=== PATIENT | female | born 1975 | race Caucasian/White ===

== ENCOUNTER 2021-09-22 09:26 | Emergency (ER) | payer BC, SELFPAY ==
[2021-09-22 09:31] VITALS: BP 160/101; PULSE 71; RESP 16; TEMP 36.7; O2SAT 99
--- NOTE | 2021-09-22 10:00 | DI.RAD_ITS ---
Exam(s) XR CHEST 2V PA LATERAL EXAM: XR CHEST 2V PA LATERAL CLINICAL HISTORY: chest pain TECHNIQUE: 2D digital imaging was performed. COMPARISON: No exams were available for comparison FINDINGS: MEDIASTINUM: Normal. HEART: Normal. PULMONARY VASCULATURE: Normal. LUNGS: Clear. PLEURAL SPACE: No pleural effusion or pneumothorax. BONE:Unremarkable for age. IMPRESSION: No acute abnormality. DATA REPOSITORY: RADIATION DOSE DELIVERED:
--- NOTE | 2021-09-22 10:00 | RT.EKG_ITS ---
APPROVED REPORT Exam: Resting ECG Reason for Exam: chest pain Patient Location: E HR:62 bpm ECG Measurements Heart Rate 62 AXIS ID 166 P 57 QRSd 79 QRS 42 QT 384 T 25 QTc 389 Conclusion Sinus rhythm...normal P axis, V-rate 60- 99
--- NOTE | 2021-09-22 10:15 | W.ED.GENAD ---
Discharge Plan Disposition Patient Disposition: HOME Condition: Stable Discharge Details Clinical Impression: Back pain Primary Care Provider: None,None ED Provider: Jenise Boland Home Meds and New Rx's Prescriptions: New cyclobenzaprine 10 mg tablet 10 mg PO TID PRNQty: 10 0RF oxycodone 5 mg capsule 5 mg PO Q6H PRNQty: 5 0RF Continued cetirizine [Zyrtec] 10 mg Tablet 10 mg PO DAILY propranolol 10 mg Tablet 10 mg PO DAILY levothyroxine 200 mcg Tablet 200 mcg PO DAILY hydrocortisone 10 mg Tablet 10 mg PO DAILY PRN multivitamin Capsule 1 cap PO BID glutathione 50 mg Capsule 100 mg PO DAILY magnesium 200 mg Tablet 800 mg PO DAILY Grapefruit Oil 125 applic MISCELLANEOUS Rx Instructions: 125mg capsule olive leaf extract 250 mg Capsule 250 mg PO DAILY B12 Active 1,000 mcg Tablet,Chewable 1,000 mcg PO DAILY Discharge Instructions Instructions: Back Pain (ED) Additional Instructions: Take the Flexeril as needed for musculoskeletal pain Take ibuprofen 600 mg every 8 hours with food Take Tylenol 650 mg every 4 hours Warm or cool compresses, what ever feels better several hours after application Light stretching as tolerated Hydrating prescription for oxycodone, this is addictive and use it very sparingly Do not take this medication and drive Please be reassessed with persistent pain greater than 3 days, new or worsening symptoms, or should you develop any additional concerns Discharge Data Discharge Date/Time-TO BE ENTERED AT DEPARTURE: 09/22/21 13:02 Medical Decision Making Labs and urinalysis did not show evidence of acute abnormality Chest x-ray and CT abdomen pelvis did not show evidence of acute abnormality Patient is feeling mild improvement after Tylenol and Toradol I suspect are musculoskeletal as etiology and no other clear etiology of patient's symptoms She is encouraged to follow-up with her PCP in 24 to 48 hours for reassessment Placed on muscle relaxants as needed Return precautions discussed and patient expressed understanding D-dimer negative, very low suspicion for pulmonary embolism given stable vitals and exam Low suspicion for cardiac etiology of patient's complaints, symptoms present and persistent since last evening with negative troponin and EKG Medical Records Medical records reviewed: Yes I reviewed the patient's medical records. Lab Data Lab results reviewed: Yes I reviewed the patient's lab results. HPI General Date/Time Provider Initiated Documentation: 07/20/22 09:47. HPI Narrative: This 46-year-old female visiting from [facility] presents with reports of recent adrenalectomy with [place]'s history now presenting with left posterior chest and flank pain which started this morning. Denies fever or chills. Symptoms exacerbated with breathing and movement. Denies known musculoskeletal injury. Denies any urinary symptoms. Denies chance of . States she had COVID in May that her symptoms resolved without significant incident. Adrenalectomy was reportedly 2 years ago. Denies any new medications. Denies any history of coronary artery disease. Denies tobacco use or hyperlipidemia. Taking hydrocortisone 3 days ago secondary to fatigue. Describes the pain as sharp. Related Data Home Medications Medication Instructions Recorded Confirmed cetirizine 10 mg tablet (Zyrtec) 10 mg PO DAILY 09/22/21 09/22/21 cyclobenzaprine 10 mg tablet 10 mg PO TID PRN #10 tabs 09/22/21 flavoring agent (bulk) (Grapefruit 125 applic miscellaneous 09/22/21 oil) glutathione 50 mg capsule 100 mg PO DAILY 09/22/21 09/22/21 hydrocortisone 10 mg tablet 10 mg PO DAILY PRN 09/22/21 09/22/21 levothyroxine 200 mcg tablet 200 mcg PO DAILY 09/22/21 09/22/21 magnesium 200 mg tablet 800 mg PO DAILY 09/22/21 09/22/21 mecobalamin (vitamin B12) 1,000 1,000 mcg PO DAILY 09/22/21 09/22/21 mcg chewable tablet (B12 Active) multivitamin 1 cap PO BID 09/22/21 09/22/21 olive leaf extract 250 mg capsule 250 mg PO DAILY 09/22/21 09/22/21 oxycodone 5 mg capsule 5 mg PO Q6H PRN #5 caps 09/22/21 propranolol 10 mg tablet 10 mg PO DAILY 09/22/21 09/22/21 Previous Rx's Medication Instructions Recorded cyclobenzaprine 10 mg tablet 10 mg PO TID PRN #10 tabs 09/22/21 oxycodone 5 mg capsule 5 mg PO Q6H PRN #5 caps 09/22/21 Allergies Allergy/AdvReac Type Severity Reaction Status Date / Time Cephalosporins AdvReac Unverified 09/22/21 09:36 latex AdvReac Unverified 09/22/21 09:36 General Stated Complaint: Nk/Back Pain ZARIA: 4 Review of Systems All systems reviewed & are unremarkable except as noted in HPI and below PFSH All Active Problems (Updated 09/22/21 @ 12:51 by CLIFF Dejesus) Back pain (Acute) Social History Smoking/Tobacco Use Status: Never Smoking risk assessment performed?: Yes Alcohol Intake: current Alcohol Intake frequency: holidays/special occasions only Substance use type: does not use Do you feel safe at home: Yes Do you feel safe in your relationship?: Yes Exam Const General: cooperative, comfortable and no acute distress Eyes Sclera: sclerae normal Resp Effort & Inspection: normal respiratory effort Auscultation: clear to auscultation bilaterally Cardio Rate: regular rate Rhythm: regular rhythm GI Other: Nontender abdominal exam, left flank tenderness without bruising Skin General skin exam: no rashes or lesions noted Neuro General: patient alert and patient oriented x3 Extrem Other: distal pulses intact no calf swelling or tenderness Course Vital Signs Vital signs: Vital Signs Temperature 36.7 C 09/22/21 09:31 Pulse 71 09/22/21 09:31 Respiratory Rate 16 09/22/21 09:31 Blood Pressure 160/101 H 09/22/21 09:31 Pulse Oximetry 99 09/22/21 09:31 Temperature 36.7 C 09/22/21 09:31 Pulse 71 09/22/21 09:31 Respiratory Rate 16 09/22/21 09:31 Respiratory Effort 09/22/21 09:35 Blood Pressure 160/101 H 09/22/21 09:31 Blood Pressure Position Sitting 09/22/21 09:31 Pulse Oximetry 99 09/22/21 09:31 Oxygen Delivery Method Room Air 09/22/21 09:31 Oxygen Flow Rate 0 09/22/21 09:31 Pain Level 2 09/22/21 09:31
[2021-09-22 10:22] LABS: Abs Immature Grans 0.02 10^3/uL (0.0-0.06); Absolute Basophil Count 0.04 10^3/uL (0.0-0.2); Absolute Eosinophil Count 0.23 10^3/uL (0.0-0.7); Absolute Lymphocyte Count 1.46 10^3/uL (1.2-3.4); Absolute Monocyte Count 0.49 10^3/uL (0.1-0.8); Absolute Neutrophil Count 7.63 10^3/uL (1.2-6.7); Basophils % 0.4; Eosinophils % 2.3; HCT 38.3 % (36.0-46.0); HGB 12.5 g/dL (11.2-15.7); Immature Grans % 0.2; Lymphocytes % 14.8; MCH 27.7 pg (27.0-33.0); MCHC 32.6 % (32.0-36.0); MCV 85 fL (80-95); MPV 11.3 fL (8.0-11.0); Neutrophils % 77.3; Platelet Count 329 10^3/uL (130-400); RBC 4.51 10^6/uL (3.93-5.22); RDW 12.8 % (11.7-14.6); RDW-SD 39.2 fL; WBC 9.87 10^3/uL (4.4-10.8)
[2021-09-22] MEDS: Acetaminophen 325 MG TAB 650 MG PO (10:23)
[2021-09-22 10:39] LABS: ALT 19 U/L (14-59); AST 13 U/L (15-37); Albumin 3.7 g/dL (3.4-5.0); Alkaline Phosphatase 72 U/L (46-116); Anion Gap 5.9 mmol/L (3-11); BUN 15 mg/dL (7-18); Bilirubin, Total 0.2 mg/dL (0.2-1.0); CO2 27.1 mmol/L (21.0-32.0); CREATININE 0.8 mg/dL (0.55-1.02); Calcium 9.5 mg/dL (8.5-10.1); Chloride 104 mmol/L (98-107); Glucose 105 mg/dL (74-106); Lipase 69 U/L (73-393); Potassium 4.2 mmol/L (3.5-5.1); Sodium 137 mmol/L (136-145); Total Protein 7.1 g/dL (6.4-8.2); Troponin I < 50 ng/L (<or=60)
[2021-09-22 10:45] LABS: Bilirubin Negative (Negative); Blood Negative (Negative); Clarity Clear (Clear); Glucose Negative (Negative); Ketones Negative (Negative); Leukocyte Esterase Negative (Negative); Nitrite Negative (Negative); Urobilinogen 0.2 EU/dL (Up TO 0.2)
[2021-09-22 10:59] LABS: D-Dimer 289 ng/mlFEU (<500)
[2021-09-22] MEDS: Omnipaque 350 MG/ML 100 ML BTL IJ (11:53)
[2021-09-22] MEDS: Normal Saline Flush 10 ML SYR IVP (11:54)
--- NOTE | 2021-09-22 11:55 | DI.CT_ITS ---
Exam(s) CT ABDOMEN PELVIS W EXAM: CT ABDOMEN PELVIS W CLINICAL HISTORY: left flank and llq pain, hx of adrenalectomy. TECHNIQUE: Imaging Protocol: Axial computed tomography images with coronal and sagittal reformatted images were created and reviewed CONTRAST MATERIAL: Intravenous: Omnipaque 350 Contrast volume:100 ml Oral: no COMPARISON: CR XR CHEST 2V PA LATERAL from 09/22/2021 FINDINGS: ABDOMEN: Lung Bases: Normal where visualized. Liver: Normal density. No measurable mass. Gallbladder and biliary tract: No radiodense calculus or dilation. Pancreas: Normal density, no abnormal calcifications or inflammatory process. Spleen: Normal. Kidneys: Normal size, contour and axis. No radiodense stones or obstructive uropathy. No masses seen. Adrenal glands: Status post left adrenalectomy. Surgical clips in this area. None no visible mass. Right adrenal gland normal. Abdominal Aorta: Abdominal portion non-dilated. PELVIS: Bladder: No gross wall thickening. No calculi.No focal mass. Bowel: No obstruction or bowel wall thickening. Appendix normal. Peritoneal cavity: No ascites, collection or mesenteric inflammatory response. Bones: L5 spondylolysis and L5-S1 spondylolisthesis Reproductive organs: Uterus retroflexed. Nabothian cyst noted. Ovaries normal. Lymph nodes: Unremarkable. Impression: Status post left adrenalectomy. No acute abnormality. RADIATION DOSE DELIVERED: 1,210.35mGy.cm Total DLP DATA REPOSITORY: All CT scans at this facility are submitted to the National Radiology Data Registry (NRDR) Dose Index Registry (DIR) with the [employer] (A[employer]). RADIATION OPTIMIZATION: All CT scans at this facility use at least one of these dose optimization te chniques: automated exposure control; mA and/or kV adjustment per patient size (includes targeted exa ms where dose is matched to clinical indication); or iterative reconstruction.
[2021-09-22] MEDS: Ketorolac 15 MG/ML VIAL IVP (13:02)
== END 2021-09-22 13:02 | disposition home or self-care (01) ==
PROVIDERS: Emergency Provider Physician Assistant
DX: M54.9 Dorsalgia, unspecified (principal); R07.9 Chest pain, unspecified; R10.819 Abdominal tenderness, unspecified site; Z86.16 Personal history of COVID-19
CPT/HCPCS: 36415; 80053; 81025; 83690; 93005; 96374; 99285; 71046; 74177; 81003; 84484; 85025; 85379; 93010; J1885; J3490